=== PATIENT | female | born 1990 | race Caucasian/White ===

== ENCOUNTER 2019-04-16 13:18 | Observation (INO) ==
[2019-04-16 11:35] LABS: Amphetamine Screen,Urine Negative ng/mL (Cutoff=1000); Barbiturate Screen,Urine Negative ng/mL (Cutoff=200); Benzodiazepines Screen,Urine Negative ng/mL (Cutoff=200); Cannabinoid Screen,Urine Negative ng/mL (Cutoff = 50); Cocaine Screen,Urine Negative ng/mL (Cutoff= 300); Opiate Screen,Urine Negative ng/mL (Cutoff=300); Phencyclidine Screen,Urine Negative ng/mL (Cutoff=25)
== END 2019-04-16 14:21 | disposition home or self-care (01) ==
LOC: 1NENULAB
PROVIDERS: ADMIT Registered Nurse; ATTEND Registered Nurse

== ENCOUNTER 2019-04-29 14:55 | Inpatient (IN) ==
[~2019-04-29 14:55] MED LIST: *HR* Nalbuphine 10 MG/ML AMPUL IVP PRN; Azithromycin 500 MG in 0.9 % Sodium Chloride 250 ML IVPB ONE; Famotidine 20 MG/2 ML VIAL IVP PRN; Lidocaine 1% 20 ML MDV INFILT PRN; Metoclopramide 10 MG/2 ML VIAL IVP PRN; Naloxone 0.4 MG/ML INJ IVP PRN; Ondansetron 4 MG/2 ML VIAL IVP PRN; Penicillin G Potassium 5,000,000 UNIT in 0.9 % Sodium Chloride Mini Bag 100 ML IVPB ONE
[2019-04-29] MEDS ORDERED: Ringers Solution, Lactated 1,000 ML IVC SCH (15:00)
[2019-04-29] MEDS ORDERED: Ringers Solution, Lactated 1,000 ML ONE (15:02)
[2019-04-29 15:34] LABS: Basophils # 0.1 K/mcL (0.0-0.2); Basophils % 0.5 %; Eosinophils # 0.1 K/mcL (0.0-0.6); Eosinophils % 0.5 %; Hematocrit 38.2 % (35.3-44.9); Immature Granulocytes % 1.4 % (0-4); Lymphocytes # 1.9 K/mcL (0.6-4.6); Lymphocytes % 10.7 %; Mean Corpuscular Volume 88.2 fL (83.0-100.0); Mean Platelet Volume 11.1 fL (9.4-12.4); Monocytes % 5.6 %; Neutrophils # 14.2 K/mcL (1.6-8.9); Platelet Count 266 K/mcL (140-400); Red Blood Count 4.33 M/mcL (3.82-4.97); Red Cell Distribution Width 13.4 % (11.5-14.5); Segmented Neutrophils % 81.3 %; White Blood Count 17.4 K/mcL (4.3-11.1)
[2019-04-29] MEDS ORDERED: Epidural Premix (fent/bupiv) 110 ML EP SCH (15:45)
[2019-04-29] MEDS ORDERED: EPHEDrine 50 MG/ML VIAL IVP PRN (15:45)
[2019-04-29] MEDS ORDERED: Epidural Premix (fent/bupiv) 110 ML EP ONE (15:48)
[2019-04-29] MEDS ORDERED: Penicillin G Potassium 2,500,000 UNIT in 0.9 % Sodium Chloride 100 ML IVPB SCH (17:00)
[2019-04-29] MEDS ORDERED: Oxytocin 20 units/ LR 1000 mL 20 UNIT/1,000 ML BAG IVC ONE (17:49)
[2019-04-29] MEDS ORDERED: Lanolin 7 G OINT...G. TP PRN (20:16)
[2019-04-29] MEDS ORDERED: Oxytocin 20 units/ LR 1000 mL 20 UNIT/1,000 ML BAG IVC SCH (20:16)
[2019-04-29] MEDS ORDERED: Benzocaine/Menthol 56 GM AEROSOL SPRAY TP PRN (20:16)
[2019-04-29] MEDS: Ibuprofen 600 MG TABLET PO PRN (20:42)
[2019-04-30] MEDS: Acetaminophen 325 MG TABLET PO PRN ×2 (00:33→07:58)
[2019-04-30] MEDS: Ibuprofen 600 MG TABLET PO PRN ×2 (04:50→12:53)
[2019-04-30 08:34] VITALS: BP 108/67
[2019-04-30] MEDS ORDERED: Prenatal Vit/FA 1 EACH TABLET PO SCH (09:00)
== END 2019-04-30 14:33 | disposition home or self-care (01) | DRG 807 ==
LOC: 1NENULAB → 1NENUOBS 20:13
PROVIDERS: ADMIT Advanced Practice Midwife; ATTEND Advanced Practice Midwife